=== PATIENT | male | born 1960 | race Caucasian/White ===

== ENCOUNTER 2016-12-26 07:07 | Emergency (ER) | payer MEDICARE ==
[2016-12-26 07:21] VITALS: BP 144/90
--- NOTE | 2016-12-26 07:36 | UC ---
Respiratory Complaint HPI - HPI Summary HPI Summary: The patient comes in today for: 1. Upper respiratory symptoms (sinus pressure, rhinitis, sneezing) Onset: 2 days ago. Palliative/provocative: Sleeping helps. Elida and Zyrtec did not help. Quality: Pressure Region: Frontal and maxillary Severity: No pain. Time: Constant Associated symptoms: Rhinitis: Nothing comes out. Cough: None. Chest pain, dyspnea, wheezing: None. Sore throat: None. Itchy nose: None. FEvers: None. Body aches: None. * - History of Current Complaint Chief Complaint: UC Stated Complaint: SINUS COMPLAINT Time Seen by Provider: 12/26/16 07:30 Hx Obtained From: Patient - Allergies/Home Medications Allergies/Adverse Reactions: Allergies Allergy/AdvReac Type Severity Reaction Status Date / Time No Known Allergies Allergy Verified 11/06/16 18:19 Home Medications: Home Medications Fexofenadine (NF) [Elida 180 (NF)] 180 mg PO DAILY 12/26/16 [History Confirmed 12/26/16] PMH/Surg Hx/FS Hx/Imm Hx Previously Healthy: No Endocrine History Of: Denies: Diabetes, Thyroid Disease, Hyperthyroidism, Hypothyroidism, Dyslipidemia Cardiovascular History Of: Denies: Cardiac Disorders, Hypertension, Pacemaker/ICD, Myocardial Infarction , Congestive Heart Failure, Atrial Fibrillation, Deep Vein Thrombosis, Bleeding Disorders Respiratory History Of: Reports: Asthma Denies: COPD, Bronchitis, Pneumonia, Pulmonary Embolism GI/ History Of: Denies: Gastroesophageal Reflux, Ulcer, Gastrointestinal Bleed, Gall Bladder Disease, Kidney Stones, Diverticulitis, Renal Disease, Urosepsis Neurological History Of: Denies: TIA, CVA, Dementia, Seizures, Migraine Psychological History Of: Denies: Anxiety, Depression, Bipolar Disorder, Schizophrenia, Post Traumatic Stress Disorder Cancer History Of: Denies: Lung Cancer, Colorectal Cancer, Breast Cancer, Prostate Cancer Other History Of: Negative For: HIV, Hepatitis B, Hepatitis C, Anticoagulant Therapy - Surgical History Surgical History: Yes Surgery Procedure, Year, and Place: Fatty Tumors - Family History Known Family History: Positive: Hypertension, Respiratory Disease Negative: Cardiac Disease - Social History Occupation: Employed Full-time Alcohol Use: None Substance Use Type: None, Marijuana Smoking Status (MU): Light Every Day Tobacco Smoker Type: Cigarettes Amount Used/How Often: <1/2 PPD Length of Time of Smoking/Using Tobacco: 36 Years Have You Smoked in the Last Year: Yes - Immunization History Most Recent Influenza Vaccination: 11/06/13 Most Recent Tetanus Shot: 10/01/12 Most Recent Pneumonia Vaccination: 10/01/12 Review of Systems Constitutional: Negative Skin: Negative Eyes: Negative ENT: Negative Respiratory: Negative Cardiovascular: Negative Gastrointestinal: Negative Genitourinary: Negative All Other Systems Reviewed And Are Negative: Yes Physical Exam Triage Information Reviewed: Yes Appearance: Well-Appearing, No Pain Distress, Well-Nourished Vital Signs: Initial Vital Signs Temp 97.7 F 12/26/16 07:16 Pulse 90 12/26/16 07:16 Resp 16 12/26/16 07:16 BP 144/90 12/26/16 07:16 Pulse Ox 97 12/26/16 07:16 Vital Signs Reviewed: Yes Eyes: Positive: Conjunctiva Clear. Negative: Discharge ENT: Positive: Hearing grossly normal. Negative: Pharyngeal erythema, Nasal congestion, Nasal drainage, TM bulging, TM dull, TM red, Tonsillar swelling, Tonsillar exudate Dental: Negative: Gross Decay/Caries @, Dental Fracture @ Neck: Positive: Supple, Nontender, No Lymphadenopathy. Negative: Nuchal Rigidity Respiratory: Positive: Chest non-tender, Lungs clear, No respiratory distress, No accessory muscle use. Negative: Crackles, Wheezing Cardiovascular: Positive: RRR, No Murmur Abdomen Description: Positive: Nontender, No Organomegaly, Soft. Negative: Distended, Guarding Musculoskeletal: Positive: Strength Intact, ROM Intact Neurological: Positive: Alert, Muscle Tone Normal Psychological: Positive: Age Appropriate Behavior, Consolable Skin: Negative: rashes, breakdown UC Diagnostic Evaluation - Laboratory O2 Sat by Pulse Oximetry: 97 Respiratory Course/Dx - Course Course Of Treatment: Patient was told that I thought he had a viral syndrome/ upper respiratory infection and that antibiotics probably would not help at this time. However, he was interested in getting an antibiotic anyway in the event he develops purulent upper respiratory symptoms. - Differential Dx/Diagnosis Provider Diagnoses: Viral syndrome. Upper respiratory infection. Discharge - Discharge Plan Condition: Stable Disposition: HOME Patient Education Materials: Viral Syndrome (ED), Upper Respiratory Infection ( ED) Forms: *Work Release Referrals: Lucas Zaragoza MD [Primary Care Provider] -
== END 2016-12-26 07:52 | disposition home or self-care (01) ==
LOC: UCCORT 07:07
DX: B34.9 Viral infection, unspecified (principal); J06.9 Acute upper respiratory infection, unspecified; F17.210 Nicotine dependence, cigarettes, uncomplicated; F12.90 Cannabis use, unspecified, uncomplicated
CPT/HCPCS: 99212; G0463

== ENCOUNTER 2018-01-03 13:33 | Emergency (ER) | payer MEDICARE ==
[2018-01-03 14:27] LABS: Hematocrit 44 % (42-52); Hemoglobin 14.8 g/dl (14.0-18.0); Mean Corpuscular HGB Conc 34 g/dl (31-36); Mean Corpuscular Hemoglobin 32 pg (27-31); Mean Corpuscular Volume 95 fL (80-94); Mean Platelet Volume 7 um3 (7.4-10.4); Platelet Count 292 10^3/ul (150-450); Red Cell Distribution Width 15 % (10.5-15); White Blood Count 7.3 10^3/ul (3.5-10.8)
[2018-01-03] MEDS ORDERED: Labetalol IV* 5 MG/ML 20 ML VIAL IV PUSH ONE (14:35)
[2018-01-03 14:42] LABS: EGFR Non-African American 110.7 (>60)
[2018-01-03 14:50] LABS: INR 0.81 (0.77-1.02)
[2018-01-03 15:33] LABS: ABS Basophils 0.1 10^3/ul (0-0.2); ABS Eosinophils 0.2 10^3/ul (0-0.6); ABS Lymphocytes 1.8 10^3/ul (1.0-4.8); ABS Monocytes 0.8 10^3/ul (0-0.8); ABS Neutrophils 4.5 10^3/ul (1.5-7.7); ABS Nucleated RBC 0 10^3/ul; Eosinophil % 2.7 % (0-6); Lymphocyte % 24.1 % (25-47); Nucleated Red Blood Cells % 0.1
--- NOTE | 2018-01-03 15:53 | RAD ---
INDICATION: Weakness COMPARISON: None TECHNIQUE: Noncontrast axial source images were acquired from the skull base to the vertex. FINDINGS: Ventricles/sulci: The ventricles and cisterns are normal in size and configuration for age. Brain parenchyma: There is no focal parenchymal finding, evidence of intracranial mass, or intracranial mass effect. Intracranial hemorrhage:None. Extra-axial spaces: There are no abnormal extra axial fluid collections or evidence of extra-axial mass. Calvarium: There is no calvarial fracture or other calvarial abnormality. Scalp: There is no evidence of scalp or extracalvarial soft tissue abnormality. Paranasal sinuses/mastoid: The paranasal sinuses and mastoid air cells are clear. Other: None. IMPRESSION: No acute intracranial findings.
--- NOTE | 2018-01-03 16:48 | ED ---
Akosua Caro Nilda, scribed for Esvin Back MD on 01/03/18 at 1426 . Neurological HPI - HPI Summary HPI Summary: This patient is a 57 year old M presenting to [facility] accompanied by with a chief complaint of a syncopal episode while at [place] office today. The patient rates the pain 0/10 in severity. Symptoms aggravated by nothing and alleviated by spontaneous resolution. Patient reports elevated BP, leaning to the right for approximately 1 hour, and dizziness (room spinning). Patient denies SOB, CP , EDWARDS, and palpitations. states pt had similar episode about 6 months ago which had resolved the next day. - History of Current Complaint Chief Complaint: EDSyncope Stated Complaint: WEAKNESS COMING FROM [place] OFFICE Time Seen by Provider: 01/03/18 14:06 Hx Obtained From: Patient, Family/Placement Assistant - Onset/Duration: Sudden Onset, Started hours ago, Resolved Pain Intensity: 0 Pain Scale Used: 0-10 Numeric Character: Other: - syncope, elevated BP, leaning to the right for approximately 1 hour, and dizziness (room spinning). Patient denies SOB, CP, EDWARDS , and palpitations. Number of Episodes: 1 Syncope Context: At Rest Aggravating: Nothing Alleviating: Spontanious Resolution Associated Signs and Symptoms: Positive: Unsteady Gait. Negative: Headache, Chest Pain, Shortness of Breath, Palpitations - Allergy/Home Medications Allergies/Adverse Reactions: Allergies Allergy/AdvReac Type Severity Reaction Status Date / Time No Known Allergies Allergy Verified 11/06/16 18:19 Home Medications: Home Medications Omeprazole CAP* [Prilosec CAP* 20 MG] 20 mg PO QAM 01/03/18 [History Confirmed 01/03/18] Pravastatin (NF) [Pravachol (NF)] 20 mg PO DAILY 01/03/18 [History Confirmed 01/19] amLODIPine TAB* [Norvasc 5 mg TAB*] 10 mg PO DAILY 01/03/18 [History Confirmed 01/03/18] PMH/Surg Hx/FS Hx/Imm Hx Endocrine/Hematology History: Denies: Hx Anticoagulant Therapy, Hx Diabetes, Hx Thyroid Disease Cardiovascular History: Reports: Hx Hypertension Denies: Hx Congestive Heart Failure, Hx Deep Vein Thrombosis, Hx Myocardial Infarction, Hx Pacemaker/ICD Respiratory History: Reports: Hx Asthma Denies: Hx Chronic Obstructive Pulmonary Disease (COPD), Hx Lung Cancer, Hx Pneumonia, Hx Pulmonary Embolism GI History: Denies: Hx Gall Bladder Disease, Hx Gastrointestinal Bleed, Hx Ulcer, Hx Urosepsis History: Denies: Hx Kidney Stones, Hx Renal Disease Neurological History: Denies: Hx Dementia, Hx Migraine, Hx Seizures, Hx Transient Ischemic Attacks (TIA) Psychiatric History: Denies: Hx Anxiety, Hx Depression, Hx Schizophrenia, Hx Bipolar Disorder - Surgical History Surgery Procedure, Year, and Place: Fatty Tumors Infectious Disease History: No Infectious Disease History: Denies: Traveled Outside the [place] in Last 30 Days - Family History Known Family History: Positive: Hypertension, Respiratory Disease Negative: Cardiac Disease - Social History Lives: With Family Alcohol Use: None Substance Use Type: Reports: None, Marijuana Smoking Status (MU): Light Every Day Tobacco Smoker Type: Cigarettes Amount Used/How Often: <1/2 PPD Length of Time of Smoking/Using Tobacco: 36 Years Have You Smoked in the Last Year: Yes Review of Systems Positive: Other - elevated BP. Negative: Palpitations, Chest Pain Negative: Shortness Of Breath Neurological: Other - dizziness (room spinning), leaning to right during ambulation Negative: Headache All Other Systems Reviewed And Are Negative: Yes Physical Exam - Summary Physical Exam Summary: VITAL SIGNS: Reviewed. GENERAL: Patient is a well-developed and nourished male who is lying comfortable in the stretcher. Patient is not in any acute respiratory distress. HEAD AND FACE: No signs of trauma. No ecchymosis, hematomas or skull depressions. No sinus tenderness. EYES: PERRLA, EOMI x 2, No injected conjunctiva, no nystagmus. EARS: Hearing grossly intact. Ear canals and tympanic membranes are within normal limits. MOUTH: Oropharynx within normal limits. NECK: Supple, trachea is midline, no adenopathy, no JVD, no carotid bruit, no c- spine tenderness, neck with full ROM. CHEST: Symmetric, no tenderness at palpation LUNGS: Clear to auscultation bilaterally. No wheezing or crackles. CVS: Regular rate and rhythm, S1 and S2 present, no murmurs or gallops appreciated. ABDOMEN: Soft, non-tender. No signs of distention. No rebound no guarding, and no masses palpated. Bowel sounds are normal. EXTREMITIES: FROM in all major joints, no edema, no cyanosis or clubbing. NEURO: Alert and oriented x 3. No acute neurological deficits. Speech is normal and follows commands. NIH: 0 I ambulated with the pt, who ambulated well with no staggering and no ataxia. SKIN: Dry and warm Triage Information Reviewed: Yes Vital Signs On Initial Exam: Initial Vitals Temp Pulse Resp BP Pulse Ox 98.0 F 78 16 162/118 98 01/03/18 13:53 01/03/18 13:53 01/03/18 13:53 01/03/18 13:53 01/03/18 13:53 Vital Signs Reviewed: Yes Diagnostics - Vital Signs Vital Signs Temp Pulse Resp BP Pulse Ox 01/03/18 13:53 98.0 F 78 16 162/118 98 - Laboratory Lab Results: Lab Results 01/03/18 01/03/18 01/03/18 Range/Units 14:13 14:13 14:13 WBC 7.3 (3.5-10.8) 10^3/ul RBC 4.60 (4.0-5.4) 10^6/ul Hgb 14.8 (14.0-18.0) g/dl Hct 44 (42-52) % MCV 95 H (80-94) fL MCH 32 H (27-31) pg MCHC 34 (31-36) g/dl RDW 15 (10.5-15) % Plt Count 292 (150-450) 10^3/ul MPV 7 L (7.4-10.4) um3 Neut % (Auto) 61.7 (38-83) % Lymph % (Auto) 24.1 L (25-47) % [place] % (Auto) 10.7 H (1-9) % Eos % (Auto) 2.7 (0-6) % Baso % (Auto) 0.8 (0-2) % Absolute Neuts (auto) 4.5 (1.5-7.7) 10^3/ul Absolute Lymphs (auto) 1.8 (1.0-4.8) 10^3/ul Absolute Monos (auto) 0.8 (0-0.8) 10^3/ul Absolute Eos (auto) 0.2 (0-0.6) 10^3/ul Absolute Basos (auto) 0.1 (0-0.2) 10^3/ul Absolute Nucleated RBC 0 10^3/ul Nucleated RBC % 0.1 INR (Anticoag Therapy) 0.81 (0.77-1.02) APTT 32.3 (26.0-36.3) seconds Sodium 139 (133-145) mmol/L Potassium 3.6 (3.5-5.0) mmol/L Chloride 104 (101-111) mmol/L Carbon Dioxide 28 (22-32) mmol/L Anion Gap 7 (2-11) mmol/L BUN 14 (6-24) mg/dL Creatinine 0.73 (0.67-1.17) mg/dL Est GFR ( Amer) 142.4 (>60) Est GFR (Non-Af Amer) 110.7 (>60) BUN/Creatinine Ratio 19.2 (8-20) Glucose 97 (70-100) mg/dL Lactic Acid (0.5-2.0) mmol/L Calcium 9.7 (8.6-10.3) mg/dL Total Bilirubin 0.40 (0.2-1.0) mg/dL AST 19 (13-39) U/L ALT 24 (7-52) U/L Alkaline Phosphatase 50 (34-104) U/L Troponin I 0.00 (<0.04) ng/mL Total Protein 7.3 (6.4-8.9) g/dL Albumin 4.4 (3.2-5.2) g/dL Globulin 2.9 (2-4) g/dL Albumin/Globulin Ratio 1.5 (1-3) Triglycerides 83 mg/dL Cholesterol 200 mg/dL LDL Cholesterol 119 mg/dL HDL Cholesterol 64.2 mg/dL Serum Alcohol < 10 (<10) mg/dL 01/03/18 Range/Units 14:13 WBC (3.5-10.8) 10^3/ul RBC (4.0-5.4) 10^6/ul Hgb (14.0-18.0) g/dl Hct (42-52) % MCV (80-94) fL MCH (27-31) pg MCHC (31-36) g/dl RDW (10.5-15) % Plt Count (150-450) 10^3/ul MPV (7.4-10.4) um3 Neut % (Auto) (38-83) % Lymph % (Auto) (25-47) % [place] % (Auto) (1-9) % Eos % (Auto) (0-6) % Baso % (Auto) (0-2) % Absolute Neuts (auto) (1.5-7.7) 10^3/ul Absolute Lymphs (auto) (1.0-4.8) 10^3/ul Absolute Monos (auto) (0-0.8) 10^3/ul Absolute Eos (auto) (0-0.6) 10^3/ul Absolute Basos (auto) (0-0.2) 10^3/ul Absolute Nucleated RBC 10^3/ul Nucleated RBC % INR (Anticoag Therapy) (0.77-1.02) APTT (26.0-36.3) seconds Sodium (133-145) mmol/L Potassium (3.5-5.0) mmol/L Chloride (101-111) mmol/L Carbon Dioxide (22-32) mmol/L Anion Gap (2-11) mmol/L BUN (6-24) mg/dL Creatinine (0.67-1.17) mg/dL Est GFR ( Amer) (>60) Est GFR (Non-Af Amer) (>60) BUN/Creatinine Ratio (8-20) Glucose (70-100) mg/dL Lactic Acid 0.7 (0.5-2.0) mmol/L Calcium (8.6-10.3) mg/dL Total Bilirubin (0.2-1.0) mg/dL AST (13-39) U/L ALT (7-52) U/L Alkaline Phosphatase (34-104) U/L Troponin I (<0.04) ng/mL Total Protein (6.4-8.9) g/dL Albumin (3.2-5.2) g/dL Globulin (2-4) g/dL Albumin/Globulin Ratio (1-3) Triglycerides mg/dL Cholesterol mg/dL LDL Cholesterol mg/dL HDL Cholesterol mg/dL Serum Alcohol (<10) mg/dL Result Diagrams: 01/03/18 14:13 01/03/18 14:13 Lab Statement: Any lab studies that have been ordered have been reviewed, and results considered in the medical decision making process. - CT Brain CT Interpretation Completed By: Radiologist - Brain CT, per radiologist, reveals no acute intracranial findings. Dr. Back reviewed this report. - EKG 1406 Cardiac Rate: NL EKG Rhythm: Sinus Rhythm - 71 bpm EKG Interpretation: no ST elevation, ST depressions at V4, V5, and V6. NIH Scale - NIH Scale Level of Consciousness: Alert/Keenly Responsive Ask Patient the Month and His/Her Age: Both Correct Ask Pt to Open/Close Eyes and Supervisor Warping Department/Release Non-Paretic Hand: Both Correctly Best Gaze (Only Horizontal Eye Movement): Normal Visual Field Testing: No Visual Loss Facial Paresis-Pt to Smile & Close Eyes or Grimace Symmetry: Normal/Symmetrical Motor Function - Right Arm: No Drift-Holds 10 Seconds Motor Function - Left Arm: No Drift-Holds 10 Seconds Motor Function - Right Leg: No Drift-Holds 10 Seconds Motor Function - Left Leg: No Drift-Holds 10 Seconds Limb Ataxia-Must be out of Proportion to Weakness Present: Absent Sensory (Use Pinprick to Test Arms/Legs/Trunk/Face): Normal Best Language (Describe Picture, Name Items): No Aphasia Dysarthria (Read Several Words): Normal Extinction and Inattention: No Abnormality Total Score: 0 Course/Dx - Course Assessment/Plan: This patient is a 57 year old M presenting to [facility] accompanied by with a chief complaint of a syncopal episode today while at his office today. The patient rates the pain 0/10 in severity. Symptoms aggravated by nothing and alleviated by spontaneous resolution. Patient reports elevated BP, leaning to the right for approximately 1 hour, and dizziness (room spinning). Patient denies SOB, CP, EDWARDS, and palpitations. Pt notes he takes BP medications. states pt had similar episode about 6 months ago which had resolved the next day. . An EKG reveals, NSR 71 bpm, No ST elevations, ST depressions at V4, V5, and V6. Brain CT, per radiologist, reveals no acute intracranial findings. Dr. Back has reviewed this radiology report. In the ED course an IV access was obtained. Patient was placed in a coat fitter. Patient was started with IV fluids. Physical exam revealed no neurological deficit. I ambulated the patient myself and had no ataxia. He had a good ambulation. Labs without any significant abnormality. Troponin #1: 0.00. EKG shows a NSR w/o ST elevations. CXR impression: No acute pathology. Head CT impression: No acute findings. In the ED course patient was given Labetalol for mildly elevated blood pressure. Now patients blood pressure is 144/81. He continues to denied any CP or SOB. I believe he needs better control of the blood pressure as an outpatient. He continues to be hemodynamically stable and is A+OX3. I discussed all the findings and test results with the patient. Patient was instructed to return to the emergency room immediately if any of the symptoms return or worsens. Plan of care was discussed with the patient and understands and agrees. All questions were answered at patient satisfaction. There were no further complaints or concerns. Lung exam before discharge: CTA B /L. Good air exchange. No wheezing or crackles heard. CVS: S1 and S2 present. No murmurs appreciated. Patient is alert and oriented x 3. Patient is hemodynamically stable. Patient will be discharged home with follow up PCP in the next 2-3 days - Differential Dx Differential Diagnoses Neuro: Positive: Carbon Monoxide Poisoning, Cerebrovascular Accident, Hypertension, Seizure Disorder, Transient Ischemic Attack, Vasovagal Reaction - Diagnoses Provider Diagnoses: Uncontrolled hypertension Discharge - Discharge Plan Condition: Stable Disposition: HOME Patient Education Materials: Chronic Hypertension (ED) Forms: *Work Release Referrals: Lucas Zaragoza MD [Primary Care Provider] - 3 Days Additional Instructions: RETURN TO THE EMERGENCY DEPARTMENT FOR CHANGING OR WORSENING SYMPTOMS. The documentation as recorded by the Akosua hartman Nilda accurately reflects the service I personally performed and the decisions made by me, Esvin Back MD.
[2018-01-03 17:24] VITALS: BP 144/83
== END 2018-01-03 16:53 | disposition home or self-care (01) ==
LOC: ED 13:33
DX: I10 Essential (primary) hypertension (principal); R42 Dizziness and giddiness; F17.210 Nicotine dependence, cigarettes, uncomplicated
CPT/HCPCS: 36415; 70450; 80053; 80061; 80320; 83605; 84484; 85025; 85610; 85730; 93005; 96374; 99284; G0480